=== PATIENT | male | born 1935 | race Caucasian/White ===

== ENCOUNTER → 2018-05-03 08:30 | Outpatient (CLI) | payer MEDICARE ==
[2014-12-17 13:22] VITALS: BMI 26.6
[~2018-05-03 08:30] MED LIST: AVALIDE 150-12.1 TA1 PO; BAYER CHEWABLE81 MG PO; CLEOCIN HCL150 MG PO; CO Q-10100 MG PO; COZAAR25 MG; COZAAR25 MG PO; CRESTOR5 MG PO; NORVASC5 MG PO; PACERONE200 MG PO; PLAVIX75 MG PO; SYNTHROID125 MCG PO; UROXATRAL10 MG PO; VITAMIN B-121000 MCG PO; VITAMIN D31000 UNI2 PO; [UNRECOGNIZED DRUG - OTHER]
--- NOTE | 2018-05-08 14:26 | EC ---
PATIENT:RONAN LANDERS JR DATE OF SERVICE: 05/03/18 SEX: M MEDICAL RECORD: [id number] DATE OF : 33 LOCATION:D[facility] AGE OF PATIENT: 82 ADMISSION DATE: 05/03/18 REFERRING PHYSICIAN: INTERPRETING PHYSICIAN: SHARON PATRICIA MD ECHOCARDIOGRAM REPORT ECHO CHARGES 4 ECHO COMPLETE Date: 05/03/18 CLINICAL DIAGNOSIS: H/O CAD/HTN/A-FIB ECHOCARDIOGRAPHIC MEASUREMENTS (adult normal given) AC root (d.<3.7cm) 3.1 cm LV Septum d (<1.2 cm> 1.3 cm Valve Excursion 1.0 cm LV Septum (systole) 2.2 cm Left Atria (s.<4.0cm> 5.0 cm LVPW d(<1.2cm) 1.3 cm RV (d.<2.3cm) 2.2 cm LVPW (sytole) 1.9 cm LV diastole(<5.6CM) 5.2 cm MV E-F(>70mm/sec) cm LV systole 2.2 cm LVOT Diameter 1.9 cm MV exc.(>10mm) cm Est.ejection fraction (50-75%) % DOPPLER: LVIT cm/sec A 63.0 cm/sec E 75.0 cm/sec LA cm/sec RVSP 32.0 mmHg LVOT 93.0 cm/sec AOP1/2T m/s Asc. Ao 203 cm/sec RVOT 71.0 cm/sec RA cm/sec PA 90.0 cm/sec AV Gradient Peak 17.0 mmHg AV Mean 8.2 mmHg AV Area 1.2 cm MV Gradient Peak 3.2 mmHg MV Mean 1.1 mmHg MV Area cm COMMENTS: OP - HC Boom Truck Driver: 1 PHIL MIQUEL Hot Room Attendant: 3 Dr. Frye TAPE# PACS Pericardial Effusion N DATE OF SERVICE: 05/03/2018 Adequate 2-D, color-flow and spectral Doppler, and M-mode. Mild LVH. LV internal dimensions are normal. Wall motion is normal. EF is equal to 55%. Aortic valve sclerosis without stenosis by Doppler interrogation. Left atrium is dilated at 5.0 cm. Mitral valve shows no prolapse. Trace MR. Right-sided chambers are grossly normal. Mild TR. TRANSINT:[id number] Voice Confirmation ID: [id number] DOCUMENT ID: [id number] ECHOCARDIOGRAM REPORT [id number] RONAN LANDERS JR, GREGORY A MD at 1426 CC: [id number] DICTATION DATE: 05/03/18 1547 HEALTH SCREENER: 05/03/18 1707 DEP CLI 05/03/18 [place] [id number] [place] [id number]
== END | disposition home or self-care (01) ==
LOC: D.HCCARDIO 08:30
PROVIDERS: ATTEND Internal Medicine Interventional Cardiology
DX: I25.10 Atherosclerotic heart disease of native coronary artery without angina pectoris (principal)

== ENCOUNTER → 2019-06-20 10:39 | Outpatient (CLI) | payer MEDICARE ==
[2014-12-17 13:22] VITALS: BMI 26.6
--- NOTE | 2019-06-23 08:56 | EC ---
PATIENT:RONAN LANDERS JR DATE OF SERVICE: 06/20/19 SEX: M MEDICAL RECORD: [id number] DATE OF : 33 LOCATION:D[facility] AGE OF PATIENT: 83 ADMISSION DATE: 06/20/19 REFERRING PHYSICIAN: INTERPRETING PHYSICIAN: SHARON PATRICIA MD ECHOCARDIOGRAM REPORT ECHO CHARGES 4 ECHO COMPLETE Date: 06/20/19 CLINICAL DIAGNOSIS: HTN/TRICUSPID REGURG ECHOCARDIOGRAPHIC MEASUREMENTS (adult normal given) AC root (d.<3.7cm) 3.6 cm LV Septum d (<1.2 cm> 1.8 cm Valve Excursion 1.3 cm LV Septum (systole) 2.0 cm Left Atria (s.<4.0cm> 4.0 cm LVPW d(<1.2cm) 1.7 cm RV (d.<2.3cm) 3.7 cm LVPW (sytole) 1.9 cm LV diastole(<5.6CM) 3.9 cm MV E-F(>70mm/sec) cm LV systole 2.2 cm LVOT Diameter 1.9 cm MV exc.(>10mm) 1.3 cm Est.ejection fraction (50-75%) % DOPPLER: LVIT cm/sec A 82.0 cm/sec E 77.0 cm/sec LA cm/sec RVSP 19 mmHg LVOT 131 cm/sec AOP1/2T m/s Asc. Ao 195 cm/sec RVOT 75 cm/sec RA cm/sec PA 138 cm/sec AV Gradient Peak 15.16mmHg AV Mean 9.47 mmHg AV Area 2.1 cm MV Gradient Peak 3.62 mmHg MV Mean 1.50 mmHg MV Area cm COMMENTS: Chief Warden: 2 EDITH PROCTOR Packaging Sales Consultant: 3 Dr. Frye TAPE# PACS Pericardial Effusion N DATE OF SERVICE: Adequate 2D, color flow imaging, spectral Doppler, and M-Mode. LVH is present. LV internal dimension is normal. Wall motion is normal. EF is greater than or equal to 55%. Aortic valve is tricuspid. No evidence of stenosis by Doppler interrogation. Left atrium is upper limits of normal and minimally dilated at 4.1 cm. Mitral valve shows no prolapse. Trace MR. Right-sided chambers are grossly normal. Mild TR. ECHOCARDIOGRAM REPORT [id number] RONAN LANDERS JR TRANSINT:[id number] Voice Confirmation ID: [id number] DOCUMENT ID: [id number] SHARON PATRICIA MD at 0856 CC: [id number] DICTATION DATE: 06/20/191421 LIGHTING TECHNICIAN: 06/20/191922 DEP CLI 06/20/19 [place] [id number] [place] [id number]
== END | disposition home or self-care (01) ==
LOC: D.HCCECHO 10:39
PROVIDERS: ATTEND Internal Medicine Interventional Cardiology
DX: I10 Essential (primary) hypertension (principal)

== ENCOUNTER → 2020-06-09 10:32 | Outpatient (CLI) | payer MEDICARE ==
[2014-12-17 13:22] VITALS: BMI 26.6
--- NOTE | 2020-06-10 13:38 | EC ---
PATIENT:RONAN LANDERS JR DATE OF SERVICE: 06/09/20 SEX: M MEDICAL RECORD: [id number] DATE OF : [birth year] [facility] AGE OF PATIENT: 84 ADMISSION DATE: 06/09/20 REFERRING PHYSICIAN: INTERPRETING PHYSICIAN: SHARON PATRICIA MD ECHOCARDIOGRAM REPORT ECHO CHARGES 4 ECHO COMPLETE Date: 06/09/20 CLINICAL DIAGNOSIS: ASSESS EF /TRIUCPSID REGURG/ AORTIC SCLEROSIS HX OF HTN/CAD ECHOCARDIOGRAPHIC MEASUREMENTS (adult normal given) AC root (d.<3.7cm) 3.1 cm LV Septum d (<1.2 cm> 1.2 cm Valve Excursion 1.9 cm LV Septum (systole) 1.8 cm Left Atria (s.<4.0cm> 3.6 cm LVPW d(<1.2cm) 1.5 cm RV (d.<2.3cm) 4.1 cm LVPW (sytole) 1.8 cm LV diastole(<5.6CM) 4.9 cm MV E-F(>70mm/sec) cm LV systole 3.0 cm LVOT Diameter 1.7 cm MV exc.(>10mm) 1.9 cm Est.ejection fraction (50-75%) % DOPPLER: LVIT cm/sec A 86.0 cm/sec E 99.0 cm/sec LA cm/sec RVSP 29 mmHg LVOT 137 cm/sec AOP1/2T m/s Asc. Ao 211 cm/sec RVOT 61 cm/sec RA cm/sec PA 110 cm/sec AV Gradient Peak 17.79mmHg AV Mean 9.63 mmHg AV Area 1.5 cm MV Gradient Peak 4.18 mmHg MV Mean 1.73 mmHg MV Area cm COMMENTS: Dive Supervisor: 2 EDITH PROCTOR Broker In Charge: 3 Dr. Frye TAPE# PACS Pericardial Effusion N DATE OF SERVICE: Adequate 2D, color-flow imaging, spectral Doppler, and M-Mode. FINDINGS: Mild LVH. LV internal dimensions are normal. Wall motion is normal. EF is greater than or equal to 55%. Aortic valve is sclerotic. No evidence of stenosis by Doppler interrogation. Left atrium normal at 3.6 cm. Mitral valve shows no prolapse. Trace MR. Right-sided is grossly normal. Mild TR. ECHOCARDIOGRAM REPORT [id number] RONAN LANDERS TRANSINT:[id number] Voice Confirmation ID: [id number] DOCUMENT ID: [id number] SHARON PATRICIA MD at 1338 CC: [id number] DICTATION DATE: 06/09/20 155 PHARMACISTS: 06/09/209 DEP CLI 06/09/20 [place] [id number] [place] [id number]
== END | disposition home or self-care (01) ==
LOC: D.HCCECHO 10:32
PROVIDERS: ATTEND Internal Medicine Interventional Cardiology
DX: I10 Essential (primary) hypertension (principal)